=== PATIENT | male | born 1995 | race Caucasian/White ===

== ENCOUNTER 2023-09-21 05:53 | Emergency (ER) | payer BC ==
[2023-09-21] MEDS ORDERED: Oxymetazoline HCl 0.05% (30 ML BOT) ONE (06:13)
[2023-09-21] MEDS ORDERED: Ketorolac Tromethamine 30 MG (1 mL) VIAL ONE (07:25)
[2023-09-21] MEDS ORDERED: Metoclopramide HCl 10 MG (2 mL) VIAL ONE (07:25)
[2023-09-21] MEDS ORDERED: diphenhydrAMINE 50 MG/ML VIAL ONE (07:25)
== END 2023-09-21 09:12 | disposition home or self-care (01) ==
LOC: ERS 05:53
DX: J01.90 Acute sinusitis, unspecified (principal); Z86.16 Personal history of COVID-19
CPT/HCPCS: 96365; 96375; J1200; J1885; J2765